=== PATIENT | male | born 1990 | race Two or more races ===

== ENCOUNTER 2017-04-13 20:17 | Emergency (ER) | payer OTHER ==
[2017-04-13] MEDS ORDERED: CEFAZOLIN SODIUM 1 GM PDS 1 GM in SODIUM CHLORIDE 0.9% 100 ML 100 ML IV ONE (20:26)
[2017-04-13] MEDS ORDERED: CEFAZOLIN SODIUM 1 GM PDS ONE (20:27)
[2017-04-13] MEDS ORDERED: WATER, STERILE 20 ML 20 ML ONE (20:28)
[2017-04-13 20:43] VITALS: BP 112/75; PULSE 74; RESP 18; TEMP 99.4; O2SAT 95
== END 2017-04-13 20:57 | disposition short-term general hospital (02) | DRG 914 ==
LOC: ED 20:17
DX: S67.21XA Crushing injury of right hand, initial encounter (principal); R40.2142 Coma scale, eyes open, spontaneous, at arrival to emergency department; W31.2XXA Contact with powered woodworking and forming machines, initial encounter; S62.616A Displaced fracture of proximal phalanx of right little finger, initial encounter for closed fracture; S62.614A Displaced fracture of proximal phalanx of right ring finger, initial encounter for closed fracture
CPT/HCPCS: 73090; 73130; 96365; 99284; 99291; G0390; J0690; A6402; A6446